=== PATIENT | female | born 1965 | race African-American/Black ===

== ENCOUNTER 2020-04-02 06:37 | Emergency (ER) | payer OTHER ==
[~2020-04-02] VITALS: Ht 167.6 cm; Wt 176.9 kg
[2020-04-02] MEDS ORDERED: SYNTHROID175 MCG (06:56)
[2020-04-02] MEDS ORDERED: LITIO (06:58)
[2020-04-02] MEDS ORDERED: ZANAFLEX4 M1 PO (11:28)
[2020-04-02] MEDS ORDERED: KETO10TA2 PO (11:28)
== END 2020-04-02 12:11 | disposition home or self-care (01) ==
LOC: ER 06:37
DX: M54.2 Cervicalgia (principal); M25.562 Pain in left knee; M25.561 Pain in right knee; M54.5 Low back pain; M25.512 Pain in left shoulder; M25.511 Pain in right shoulder

== ENCOUNTER 2025-05-25 05:45 | Inpatient (IN) | payer OTHER ==
[~2025-05-25] VITALS: Ht 170.2 cm; Wt 122.5 kg
[~2025-05-25 05:45] MED LIST: KETO10TA2 PO; LITIO; SYNTHROID175 MCG; ZANAFLEX4 M1 PO
--- NOTE | 2025-05-25 06:02 | NUR ---
PTE ALERTA Y ORIENTADA X3 QUIEN REFIERE VENIR POR DOLOR EN RLQ DESDE HACE 4 BONILLA. NIEGA VOMITOS Y NAUSEAS.
[2025-05-25] MEDS ORDERED: PROMETHAZINE HCL 50 MG/ML AMPUL IM STA (06:57)
[2025-05-25] MEDS ORDERED: KETOROLAC TROMETHAMINE 30 MG VIAL IV STA (06:59)
[2025-05-25] MEDS ORDERED: 0.9 % SODIUM CHLORIDE 1,000 ML IV ONE (07:00)
--- NOTE | 2025-05-25 07:42 | NUR ---
SE EDUCA SOBRE TX MEDICO, ESTA REFIERE ENTENDER. SE EXTRAEN MUESTRAS DE LABORATORIO Y SE ADMINISTRAN MEDICAMENTOS STEVE ORDEN MEDICA. SE HACE ENTREGA DE ENVASE DE U/A Y CONTRASTE PO.
[2025-05-25 08:05] LABS: BASO % 0.5 % (0.1-1.2); EOS # 0.18 (0.04-0.54); EOS % 4.5 % (0.7-7.0); LYMPH # 0.80 (1.18-3.74); LYMPH % 19.8 % (19.3-53.1); MEAN PLATELET VOLUME 9.90 fl (9.4-12.4); MONO # 0.37 (0.24-0.82); MONO % 9.2 % (4.7-12.5); NEUT # 2.65 (1.56-6.13); NEUT % 65.5 % (34.0-71.1); RED CELL DISTRIBUTION WIDTH 13.8 % (11.6-14.4)
[2025-05-25 08:17] LABS: URINE BACTERIA 173.9 uL (0.0-1933); URINE EPITHELIAL CELLS 16.4 uL (0.0-38.8); URINE RBC 4.8 uL (0.0-20.8); URINE WBC 68.1 uL (0.0-23.2)
[2025-05-25 08:25] LABS: URINE APPEARANCE Clear; URINE BILIRRUBIN Negative (NEGATIVE); URINE BLOOD Negative; URINE COLOR Yellow; URINE GLUCOSE Negative (NEGATIVE); URINE KETONE Negative (NEGATIVE); URINE LEUKOCYTE Moderate; URINE NITRATE Negative; URINE PROTEIN Negative (NEGATIVE); URINE UROBILINOGEN 1.0 E.U./dl
[2025-05-25 08:35] LABS: TYPE CELLS RENAL TUBULAR; URINE CAST 0.00 uL (0.0-1.40)
[2025-05-25 08:45] LABS: INR 1.06
[2025-05-25 08:57] LABS: ALT/SGPT 16.0 U/L (12-78); AST/SGOT 14.0 U/L (15-37); BILIRUBIN TOTAL 0.4 mg/dL (0.3-1.2); BILIRUBIN,CONJUGATED 0.1 mg/dL (0.0-0.2); BUN CREA RATIO 17.0 (7.0-25.0); CREATININE SERUM 0.76 mg/dL (0.55-1.02); GFR 77.37; GLOBULINA 3.8 G/DL (2.4-3.5); GLUCOSE FASTING 96.0 mg/dL (65-100); OSMOLALITY SERUM 285.0 MOSM/KG (275-295)
[2025-05-25] MEDS ORDERED: MORPHINE SULFATE 4 MG/ML VIAL IV ONE (10:45)
[2025-05-25] MEDS ORDERED: PIPERACILLIN/TAZOBACTAM SODIUM 3.375 GM VIAL IV ONE ×3 (12:44→17:38)
[2025-05-25] MEDS ORDERED: KETOROLAC TROMETHAMINE 30 MG VIAL IV PRN (17:00)
[2025-05-25] MEDS ORDERED: AA 4.25%/CAL/LYTES/DEXT 5% 1,000 ML PERIFERAL SCH (17:00)
[2025-05-25] MEDS ORDERED: RINGERS SOLUTION,LACTATED 1,000 ML IV SCH (17:00)
[2025-05-25] MEDS ORDERED: MORPHINE SULFATE 4 MG/ML VIAL IV PRN (17:00)
[2025-05-25] MEDS ORDERED: FAMOTIDINE/PF 20 MG/2 ML VIAL ONE (17:38)
[2025-05-25] MEDS ORDERED: PIPERACILLIN/TAZOBACTAM SODIUM 3.375 GM in DEXTROSE 5 % IN WATER 100 ML IV SCH (18:00)
[2025-05-25 18:07] LABS: COVID-19 AG NEGATIVE (NEGATIVE)
[2025-05-25] MEDS ORDERED: ISOPROPYL ALCOHOL 30 ML OUNCE TOP ONE (19:53)
[2025-05-25] MEDS ORDERED: BUPIVACAINE HCL/MPF 0.5% 30ML VIAL ONE (19:53)
[2025-05-25] MEDS ORDERED: HYDROGEN PEROXIDE 473 ML BOTTLE TOP ONE (20:58)
[2025-05-25] MEDS ORDERED: FAMOTIDINE/PF 20 MG/2 ML VIAL IV SCH (21:00)
[2025-05-25] MEDS ORDERED: SUGAMMADEX SODIUM 200 MG/2 ML VIAL IV ONE (21:57)
[2025-05-26] MEDS ORDERED: KETOROLAC TROMETHAMINE 30 MG VIAL ONE (00:11)
[2025-05-26] MEDS ORDERED: PIPERACILLIN/TAZOBACTAM SODIUM 3.375 GM VIAL IV ONE ×2 (03:11→07:45)
[2025-05-26 03:34] VITALS: BP 128/70; O2SAT 96
[2025-05-26] MEDS ORDERED: DEXTROSE 5%-WATER 100ML IV.SOLN ONE (05:47)
[2025-05-26] MEDS ORDERED: LEVOTHYROXINE SODIUM 112 MCG TABLET PO SCH (06:00)
[2025-05-26 08:00] VITALS: BP 115/79; O2SAT 97
[2025-05-26] MEDS ORDERED: ONDANSETRON HCL 2 MG/ML VIAL IV PRN (09:00)
[2025-05-26 09:45] LABS: BASO % 0.5 % (0.1-1.2); EOS # 0.14 (0.04-0.54); EOS % 2.4 % (0.7-7.0); LYMPH # 0.80 (1.18-3.74); LYMPH % 13.6 % (19.3-53.1); MEAN PLATELET VOLUME 9.80 fl (9.4-12.4); MONO # 0.40 (0.24-0.82); MONO % 6.8 % (4.7-12.5); NEUT # 4.50 (1.56-6.13); NEUT % 76.5 % (34.0-71.1); RED CELL DISTRIBUTION WIDTH 13.5 % (11.6-14.4)
[2025-05-26 10:13] LABS: BUN CREA RATIO 12.0 (7.0-25.0); CREATININE SERUM 0.75 mg/dL (0.55-1.02); GFR 78.56; GLUCOSE FASTING 91.0 mg/dL (65-100); OSMOLALITY SERUM 285.0 MOSM/KG (275-295)
[2025-05-26 16:29] VITALS: BP 138/89; O2SAT 99
[2025-05-26] MEDS ORDERED: AA 4.25%/CAL/LYTES/DEXT 5% 1,000 ML PERIFERAL SCH (17:00)
[2025-05-26] MEDS ORDERED: ENOXAPARIN SODIUM 40 MG/0.4 ML SYRINGE SUBCUTANEO SCH (17:00)
[2025-05-26] MEDS ORDERED: GABAPENTIN 800 MG TABLET PO SCH (17:00)
[2025-05-26] MEDS ORDERED: TRAZODONE HCL 50 MG TABLET PO SCH (21:00)
[2025-05-27 00:47] VITALS: BP 129/73; O2SAT 98
[2025-05-27 08:58] VITALS: BP 141/79; O2SAT 97
[2025-05-27 16:01] VITALS: BP 125/79; O2SAT 95
[2025-05-28 00:50] VITALS: BP 135/78; O2SAT 97
[2025-05-28 08:00] VITALS: BP 128/83; O2SAT 97
[2025-05-28] MEDS ORDERED: PEPCID AC20 MG PO (10:55)
[2025-05-28] MEDS ORDERED: INTESTINEX680 M1 PO (10:55)
[2025-05-28] MEDS ORDERED: AMOX-CLAV 875-1 EACH PO (10:55)
== END 2025-05-28 11:26 | disposition home or self-care (01) | DRG 399 ==
LOC: ER 05:45 → SEC-K 17:29 → SURG 22:34 → SURH 05-26 16:11
PROVIDERS: General Practice; Surgery; ADMIT Internal Medicine; ATTEND Internal Medicine
PROC: 0WQF4ZZ Repair Abdominal Wall, Percutaneous Endoscopic Approach (ICD-10-PCS; 2025-05-25)
PROC: BW21ZZZ Computerized Tomography (CT Scan) of Abdomen and Pelvis (ICD-10-PCS; 2025-05-25)
PROC: 0DTJ4ZZ Resection of Appendix, Percutaneous Endoscopic Approach (ICD-10-PCS; principal; 2025-05-25 19:00)
PROC: 02HV33Z Insertion of Infusion Device into Superior Vena Cava, Percutaneous Approach (ICD-10-PCS; 2025-05-26)
DX: K35.890 Other acute appendicitis without perforation or gangrene (principal); K43.9 Ventral hernia without obstruction or gangrene; E03.9 Hypothyroidism, unspecified